=== PATIENT | female | born 1950 | race Caucasian/White ===

== ENCOUNTER 2018-11-16 09:43 | Emergency (ER) | payer MEDICARE, SELFPAY ==
[2018-11-16 10:00] VITALS: BP 104/66; PULSE 82; RESP 16; TEMP 36.9; O2SAT 94; BMI 20.7
--- NOTE | 2018-11-16 10:16 | DI.RAD.S_ITS ---
PROCEDURE: XR FOOT LT MIN 3V INDICATIONS: fell,now with left foot pain TECHNIQUE: 3 views of the foot were acquired. COMPARISON: None. FINDINGS: Bones: No displaced fractures or dislocations. No suspicious bony lesions. Bone mineralization is decreased. Soft tissues: No tibiotalar joint effusion. Achilles tendon appears normal in thickness. IMPRESSION: No displaced fractures of the left foot. Dictated by: Tito Cloud M.D. on 11/16/2018 at 10:15 Approved by: Tito Cloud M.D. on 11/16/2018 at 10:15
--- NOTE | 2018-11-16 11:04 | ED_ITS ---
HPI - Extremity Injury (Lower) General Chief Complaint: Extremity Injury, Lower Stated Complaint: Left foot pain from fall Time Seen by Provider: 11/16/18 10:27 Source: patient Mode of arrival: wheelchair Limitations: no limitations History of Present Illness HPI Narrative: Patient 67-year-old female history of MS presenting with left foot pain. She says she was unable sleep last night due to acute exacerbation o f her chronic back pain she got up at about 130 this morning a collapsed to the floor hurting her foot. She is able to walk on it but it is tender to touch. She denies any head injury or neck injury. She is not on any antiplatelet or anticoagulation medication. She states that her back started hurting after she bent down to tie her shoe more on the right side lumbar area. She has no numbness or tingling in her legs. She has been taking Tylenol for pain but really does not seem to be helping. The she has taken in hydrocodone in the past. MD complaint: foot injury Severity: mild Relieving factors: nothing Exacerbating factors: nothing Related Data Previous Rx's Medication Instructions Recorded hydrocodone-acetaminophen [[place]] 1 tab PO Q6H PRN #10 tab 11/16/18 Allergies Allergy/AdvReac Type Severity Reaction Status Date / Time ampicillin AdvReac Verified 11/16/18 10:14 Review of Systems Review of Systems GENERAL: Denies chills,fever HEENT: Denies throat pain RESPIRATORY: Denies dyspnea, cough, wheezing CARDIOVASCULAR: Denies chest pain, palpitations GASTROINTESTINAL: Denies nausea, vomiting MUSCULOSKELETAL: See HPI SKIN: No rash, no laceration, no pruritus NEUROLOGIC: Denies weakness, dizziness, headache, numbness 8 point review of systems is negative except for those stated above and HPI PFSH Medical History Multiple sclerosis (Acute) Social History Smoking Status: Never smoker Social History Smoking Status: Never smoker Exam Initial Vital Signs Initial Vital Signs: Vital Signs Temperature 98.4 F 11/16/18 10:00 Pulse Rate 82 11/16/18 10:00 Respiratory Rate 16 11/16/18 10:00 Blood Pressure 104/66 11/16/18 10:00 Pulse Oximetry 94 11/16/18 10:00 GENERAL: Very pleasant nice elderly female and in [no acute] distress. HEENT: Head atraumatic, no sign of trauma no depression so crepitation EOMI, pupils reactive, face symmetric, no vertebral neck pain no step-offs CARDIOVASCULAR: Regular rate and rhythm without murmurs, rubs or gallops. RESPIRATORY: Breath sounds equal bilaterally, no wheezes rales or rhonchi. ABDOMEN: Soft, nontender. Normoactive bowel sounds all 4 quadrants. No guarding or rebound. BACK: No vertebral tenderness no step-off she is tender in her right a lateral lumbar area no sign of trauma EXTREMITIES: Normal range of motion, no clubbing or edema. Neurovascularly intact Left foot slight contusion she is tender at the base of her 2nd and 3rd toes. No gross bony deformity pedal pulse intact. No ankle pain or decreased range of motion. NEUROLOGICAL: Alert and oriented x4.Normal gait and speech. Cranial nerves II through XII grossly intact. SKIN: Warm, dry, no laceration, no petechiae, no rashes or lesions. Course Orders Ordered: ED Orders 11/16/18 10:16 XR foot LT min 3V Stat Vital Signs - 8 hr 11/16/18 10:00 Temperature 98.4 F Pulse Rate 82 Respiratory Rate 16 Blood Pressure 104/66 Pulse Oximetry 94 MDM - Extremity Injury (Lower) Imaging Data Left foot XR: Attestation: I personally reviewed and interpreted this imaging study as follows: My impression: No fracture dislocation Radiologist's impression: PROCEDURE: XR FOOT LT MIN 3V INDICATIONS: fell,now with left foot pain TECHNIQUE: 3 views of the foot were acquired. COMPARISON: None. FINDINGS: Bones: No displaced fractures or dislocations. No suspicious bony lesions. Bone mineralization is decreased. Soft tissues: No tibiotalar joint effusion. Achilles tendon appears normal in thickness. IMPRESSION: No displaced fractures of the left foot. Dictated by: Tito Cloud M.D. on 11/16/2018 at 10:15 MDM Narrative Medical decision making narrative: Patient is having some mild acute on chronic back pain. Is requesting something stronger for pain. Her foot is likely only a sprain and contusion. No fracture identified on x-ray. Discharge Plan Departure Patient Disposition: Home Clinical Impression: Acute exacerbation of chronic low back pain Sprain of foot, left Qualifiers: Encounter type: initial encounter Qualified Code(s): S93.602A - Unspecified sprain of left foot, initial encounter Discharge Date/Time: 11/16/18 11:34 Interventions: ED Discharge Assessment Last Done: 11/16/18 11:32 Instructions: DI for Foot Sprain Activity Restrictions/Additional Instructions: *You have been diagnosed with left foot sprain, acute on chronic back pain *What to do: At this time x-ray is negative for any fracture. Increase activity as tolerated be sure your walking with a walker at all times *Continue to take medications as directed [place] half tablet every 6 hours only if needed for severe pain *Follow up with your primary care provider in 2-3 days *Return to ER if you should have increasing pain, frequent alls, leg weakness or any new, worsening or concerning symptoms CONTROLLED SUBSTANCE DISCHARGE (Narcotoic/benzodiazepine/Flexeril/Phenergan) 1. You have been prescribed narcotic medications, it does have acetaminophen/Tylenol/paracetamol in it so do not take extra Tylenol or Tylenol containing products 2. Please understand that we cannot provide further refills of narcotics, benzodiazepines or controlled substances through the ED and her pain management will need to be through your provider. 3. While on these medications you cannot drive or operate heavy machinery. 4. You cannot sign legal documents or perform any duties such as this. 5. As long as you're taking opiate pain medications he should also be taking a stool softener such as Colace, Dulcolax, MiraLAX or prune juice, to help avoid constipation. Prescriptions: New hydrocodone-acetaminophen [[place]] 5-325 mg tablet 1 tab PO Q6H PRN (Reason: pain) Qty: 10 RF: 0 Referrals: Florence Borja PA-C [Primary Care Provider] -
== END 2018-11-16 11:34 | disposition home or self-care (01) ==
PROVIDERS: Emergency Provider Emergency Medicine; PCP Physician Assistant
DX: M54.5 Low back pain (principal); S93.602A Unspecified sprain of left foot, initial encounter
CPT/HCPCS: 73630; 99282; 99283

== ENCOUNTER → 2022-01-05 09:57 | Outpatient (CLI) | payer MEDICARE, SELFPAY ==
--- NOTE | 2022-01-05 | DI.RAD.S_ITS ---
PROCEDURE: XR FOOT RT MIN 3V INDICATIONS: ground level fall, pain, swelling, bruising to proximal aspe TECHNIQUE: 3 views of the foot were acquired. COMPARISON: [facility], CR, XR FOOT LT MIN 3V, 11/16/2018, 10:32. FINDINGS: Bones: There is possible mild bony step-off involving the 3rd and 4th metacarpal necks. Soft tissues: No tibiotalar joint effusion. Achilles tendon appears normal. IMPRESSION: Possible mildly displaced 3rd and 4th metacarpal neck fractures. This could be further assessed with MRI, if clinically indicated. Dictated by: Karlie Marsh M.D. on 01/05/2022 at 12:06 Approved by: Karlie Marsh M.D. on 01/05/2022 at 12:07
== END ==
PROVIDERS: PCP Nurse Practitioner Gerontology; Referring Provider Nurse Practitioner Gerontology; Visit Provider Nurse Practitioner Gerontology
DX: S90.121A Contusion of right lesser toe(s) without damage to nail, initial encounter (principal); M79.671 Pain in right foot; M79.89 Other specified soft tissue disorders; W18.30XA Fall on same level, unspecified, initial encounter
CPT/HCPCS: 73630